=== PATIENT | male | born 1965 | race Caucasian/White ===

== ENCOUNTER 2019-07-26 08:02 | Day surgery (SDC) | payer BC ==
[~2019-07-26] VITALS: Ht 188 cm; Wt 120.6 kg
[2019-07-26] VITALS (9 sets, daily range): BP systolic 117–142; BP diastolic 66–90; PULSE 62–76; TEMP 98.2
[~2019-07-26 08:02] MED LIST: AMARYL 2MG T2 MG/TAB PO; ASPI325T6 PO; CRESTOR40 MG PO; DOSTINEX0.5 MG/TAB PO; GLUCOPHAGE500 MG/TAB PO; IMDUR 30MG30 MG/TAB PO; LIPITOR 80MG80 MG PO; LOPRESSOR 550 MG/TAB PO; NITROSTAT0.4 MG/TAB SL; NO HOME MEDICATIONS; NORCO 325 MG-7.1 TAB PO; PERCOCET 325 MG1 TA2 PO; PLAVIX 75MG TAB75 MG PO; PRINIVIL2.5 MG PO; PRINZIDE 12.5 M1 TAB PO
[2019-07-26 08:44] LABS: HEMATOCRIT 48.2 % (42.0-52.0); HEMOGLOBIN 15.8 g/dl (13.5-18.0); MEAN CELL VOLUME 84 fl (80.0-100.0); MEAN CORPUSCULAR HEMOGLOBIN 28 pg (27.0-31.0); MEAN CORPUSCULAR HGB CONC 33 g/dl (33.0-37.0); MEAN PLATELET VOLUME 10.2 fl (7.4-10.4); PLATELET COUNT 278 K/mm3 (130-400); RED BLOOD COUNT 5.74 M/mm3 (4.20-5.60); REDCELL DISTRIBUTION WIDTH-CV 12.8 % (11.5-14.5)
[2019-07-26 08:47] LABS: INR 0.9 (0.8-3.0); PROTHROMBIN TIME 10.1 SECONDS (9.7-12.8)
[2019-07-26 08:55] LABS: CALCIUM 8.9 mg/dL (8.4-10.2); CREATININE, serum 0.89 (0.66-1.25)
[2019-07-26] MEDS ORDERED: NORVASC 10MG10 MG PO (09:42)
[2019-07-26] MEDS ORDERED: ASPIRIN E.C. 8181 MG PO (09:43)
[2019-07-26] MEDS ORDERED: ALTACE 10MG TAB10 MG PO (09:43)
[2019-07-26] MEDS ORDERED: MAG-OX 400400 MG/TAB PO (09:43)
[2019-07-26] MEDS ORDERED: BYSTOLIC10 MG PO (09:44)
[2019-07-26] MEDS ORDERED: STRIANT30 MG (09:46)
--- NOTE | 2019-07-26 10:28 | NUR ---
SEE JERRICA FOR MEDICATION ADMINISTRATION TIMES AND INTRA AND POST SEDATION ASSESSMENTS
--- NOTE | 2019-07-26 11:10 | NUR ---
PT TO [facility] VIA BED FROM [employer]OR[employer], HOB ELEVATED HAS RADIAL BAND ON, SITE CLEAN. REVIEWED ACTIVITY WITH PT, CALL Cindy ANGELA IN REACH. TAKES COFFEE AND WATER, DR HANNA IN AND SAW PT
[2019-07-26] MEDS ORDERED: PROTONIX 40MG T40 MG PO (11:17)
--- NOTE | 2019-07-26 12:00 | NUR ---
CON'T SAME, NO C/O, USES PHONE
--- NOTE | 2019-07-26 13:00 | NUR ---
TR BAND LOOSED 3CC WAITED 5 MIN THEN 2CC THEN RELEASED BAND AFTER 10MIN NO SIGNES OF BLEEDING, AREA CLEAN AND DRY. DRESSING WITH COBAN OVER SITE, PT UP TO B/R TO VOID, GAIT STEADY, REVIEWED DISCHARGE INST. WITH PT ON SITE CARE, ACTIVITY AND PRECAUTIONS, ALSO REVIEWED NEW RX TO BE PICKED UP AT [facility]. PT IS NOT TO TAKE METFORMIN FOR 48 HRS, WITH VERBAL UNDERSTANDING.
--- NOTE | 2019-07-26 13:52 | NUR ---
ECHO COMPLETED, INT D'CD INTACT, PT UP IN ROOM, CALLED FOR RIDE
--- NOTE | 2019-07-26 14:10 | NUR ---
PT DISCHARGED VIA W/C TO CAR WITH [employer]
== END 2019-07-26 14:15 | disposition home or self-care (01) ==
LOC: COL.CAR
PROVIDERS: Internal Medicine Cardiovascular Disease
DX: I25.10 Atherosclerotic heart disease of native coronary artery without angina pectoris (principal); R94.39 Abnormal result of other cardiovascular function study; E78.00 Pure hypercholesterolemia, unspecified; I10 Essential (primary) hypertension; I08.1 Rheumatic disorders of both mitral and tricuspid valves; Z83.3 Family history of diabetes mellitus; Z82.49 Family history of ischemic heart disease and other diseases of the circulatory system; F17.220 Nicotine dependence, chewing tobacco, uncomplicated; Z95.5 Presence of coronary angioplasty implant and graft
CPT/HCPCS: J1644; J2250; J3010